=== PATIENT | male | born 1965 | race American Indian/Alaskan Native ===

== ENCOUNTER 2018-08-02 22:40 | Emergency (ER) | payer MEDICAID ==
--- NOTE | 2018-08-02 22:56 | ED PDOC ---
Arrival/HPI - General Time Seen by Provider: 08/02/18 22:44 Historian: Patient, EMS - History of Present Illness Narrative History of Present Illness (Text): 08/02/18 22:53 51 year old male, whose past medical history includes substance abuse, presents to the emergency department found by EMS unconscious. Patient was administered Narcan on the field. Patient is currently awake and responding to questions. Patient admits to heroin use on a daily basis. Patient denies any current complaints. Patient denies any fever, chills, chest pain, shortness of breath, abdominal pain, nausea, vomiting, diarrhea, urinary symptoms, back pain, neck pain, headache, dizziness, or any other complaints. Symptom Onset: Gradual Symptom Course: Improving Activities at Onset: Light Context: Street Past Medical History - Provider Review Nursing Documentation Reviewed: Yes Family/Social History - Physician Review Nursing Documentation Reviewed: Yes Family/Social History: No Known Family HX Allergies/Home Meds Allergies/Adverse Reactions: Allergies No Known Allergies Allergy (Verified 08/02/18 23:25) Home Medications: Home Meds Medication Instructions Recorded Confirmed No Known Home Med 08/02/18 08/02/18 Review of Systems - Physician Review All systems were reviewed & negative as marked: Yes - Review of Systems Constitutional: absent: Fevers, Other (Chills) Respiratory: absent: SOB Cardiovascular: absent: Chest Pain Gastrointestinal: absent: Abdominal Pain, Diarrhea, Nausea, Vomiting Genitourinary Male: absent: Dysuria, Frequency, Hematuria Musculoskeletal: absent: Back Pain, Neck Pain Neurological: absent: Headache, Dizziness Physical Exam Vital Signs Reviewed: Yes Vital Signs Temp Pulse Resp BP Pulse Ox 08/03/18 04:18 58 L 16 105/77 99 08/03/18 03:20 64 18 100 08/03/18 01:08 66 14 134/62 96 08/02/18 23:00 97.7 F 96 H 18 144/74 96 Appearance: Positive for: Well-Appearing, Non-Toxic, Comfortable Pain Distress: None Mental Status: Positive for: Alert and Oriented X 3 - Systems Exam Head: Present: Atraumatic, Normocephalic Pupils: Present: PERRL Extroacular Muscles: Present: EOMI Conjunctiva: Present: Normal Mouth: Present: Moist Mucous Membranes Neck: Present: Normal Range of Motion Respiratory/Chest: Present: Clear to Auscultation, Good Air Exchange. No: Respiratory Distress, Accessory Muscle Use Cardiovascular: Present: Regular Rate and Rhythm, Normal S1, S2. No: Murmurs Abdomen: No: Tenderness, Distention, Peritoneal Signs Back: Present: Normal Inspection Upper Extremity: Present: Normal Inspection. No: Cyanosis, Edema Lower Extremity: Present: Normal Inspection. No: Edema Neurological: Present: GCS=15, CN II-XII Intact, Speech Normal Skin: Present: Warm, Dry, Normal Color. No: Rashes Psychiatric: Present: Alert, Oriented x 3, Normal Insight, Normal Concentration Medical Decision Making ED Course and Treatment: 08/02/18 22:53 Impression: 52 year old male presents for heroin overdose and found unconscious. Plan: -- reassess and disposition Progress Notes: - Scribe Statement The provider has reviewed the documentation as recorded by the Ryanne Tracy Provider Scribe Attestation: All medical record entries made by the Scribe were at my direction and personally dictated by me. I have reviewed the chart and agree that the record accurately reflects my personal performance of the history, physical exam, medical decision making, and the department course for this patient. I have also personally directed, reviewed, and agree with the discharge instructions and disposition. Disposition/Present on Arrival - Present on Arrival Any Indicators Present on Arrival: No - Disposition Have Diagnosis and Disposition been Completed?: Yes Diagnosis: Heroin abuse Disposition: HOME/ ROUTINE Disposition Time: 05:27 Condition: GOOD Discharge Instructions (ExitCare): Opioid Use Disorder
[2018-08-02 23:14] VITALS: BMI 22.7
[2018-08-03 04:19] VITALS: O2SAT 99
[2018-08-03 06:19] VITALS: BP 118/68; PULSE 64; RESP 18; TEMP 98
--- NOTE | 2018-08-03 15:20 | CARD ---
APPROVED REPORT Date of service: 08/02/2018 EKG Measurement Heart [id number] P71 [id number] <Conclusion> Normal sinus rhythm Nonspecific ST abnormality Abnormal ECG
== END 2018-08-03 05:35 | disposition home or self-care (01) ==
LOC: MERGE 22:40 → ED 22:40
DX: F11.10 Opioid abuse, uncomplicated (principal)